=== PATIENT | male | born 1950 | race Caucasian/White ===

== ENCOUNTER → 2016-03-26 | Outpatient (CLI) | payer MEDICARE ==
--- NOTE | 2016-03-26 09:09 | US ---
EXAMINATION TYPE: US duplex aorta DATE OF EXAM: 03/26/2016 8:36 AM COMPARISON: NONE CLINICAL HISTORY: AAA Screening Z13.9. no complaints per patient, screening test EXAM MEASUREMENTS: Abdominal Aorta: Proximal: 1.9 x 2.5 cm Mid: 2.5 x 2.3 cm Distal: 2.8 x 2.4 cm Bifurcation: right 1.6 x 1.9 cm left 1.7 x 1.8 cm TECHNOLOGIST IMPRESSION: exam technically difficult due to body habitus. No AAA identified. Aorta is calcified. IMPRESSION: 1. Fusiform prominence mid to distal abdominal aorta greatest AP diameter is estimated at 2.8 cm.
== END | disposition home or self-care (01) ==
LOC: RADUSWWP 08:11
PROVIDERS: ATTEND Family Medicine
DX: Z13.6 Encounter for screening for cardiovascular disorders (principal)
CPT/HCPCS: 93979

== ENCOUNTER → 2017-04-09 | Outpatient (CLI) | payer MEDICARE ==
--- NOTE | 2017-04-09 10:11 | US ---
EXAMINATION TYPE: US duplex aorta DATE OF EXAM: 04/09/2017 COMPARISON: 03/26/2016 CLINICAL HISTORY: I71.4 Abdominal Aortic Aneurysm w/o rupture. EXAM MEASUREMENTS: Abdominal Aorta: Proximal: 2.2cm Mid: 2.2cm Distal: 3.0cm Bifurcation: Rt. 1.3cm lt 1.5cm Exam somewhat limited by overlying bowel and body habitus. IMPRESSION: Borderline aneurysmal dilatation of distal abdominal aorta.
== END | disposition home or self-care (01) ==
LOC: RADUSWWP 09:35
PROVIDERS: ATTEND Family Medicine
DX: I71.4 Abdominal aortic aneurysm, without rupture (principal)
CPT/HCPCS: 93979

== ENCOUNTER 2019-05-09 09:18 | Emergency (ER) | payer MEDICARE ==
[2019-05-09 09:23] VITALS: TEMP 98.2
--- NOTE | 2019-05-09 10:40 | ED ---
Fall HPI - General Chief Complaint: Fall Stated Complaint: Fall, leg pain Time Seen by Provider: 05/09/19 09:59 Source: patient Mode of arrival: wheelchair - History of Present Illness Initial Comments: Patient is a 68-year-old male presenting to emergency Department with complaints of left leg pain after falling approximately one week ago. Patient states he was carrying a case of Gatorade out to his car when he slipped on some snow and fell forward. Patient states he thinks he had his wallet in his left front pocket which he fell onto. Patient states immediately after the fall he was having no pain and was able to walk and get home on his own. Patient states approximately one to 2 hours later he started feeling soreness into his left leg and knee. Patient does admit to being on xarelto for stroke prevention. He denies hitting his head or LOC. He states he thought his symptoms would get better however they have intensified. Patient is having a hard time felix his left upper leg muscle secondary to pain and bruising. He states he has pain anytime he tries to bend his knee or his left hip. Patient states he is able to walk on his own over the first few steps are sore. He does have previous injury to his left lower leg many years ago. He denies any numbness and tingling into his extremities. He states he does have minor bruising and soreness as long as left chest however that has improved. He has no other complaints from the fall. Upon arrival to the ER, his vital signs are stable. - Related Data Allergies Allergy/AdvReac Type Severity Reaction Status Date / Time No Known Allergies Allergy Verified 05/09/19 09:24 Review of Systems ROS Statement: Those systems with pertinent positive or pertinent negative responses have been documented in the HPI. ROS Other: All systems not noted in ROS Statement are negative. Past Medical History Past Medical History: Coronary Artery Disease (CAD), Chest Pain / Angina, Diabetes Mellitus, Hyperlipidemia, Hypertension, Myocardial Infarction ([place]) History of Any Multi-Drug Resistant Organisms: None Reported Past Surgical History: Appendectomy, Cholecystectomy, Orthopedic Surgery Past Psychological History: No Psychological Hx Reported Smoking Status: Former smoker Past Alcohol Use History: None Reported Past Drug Use History: None Reported General Exam - General Exam Comments Initial Comments: GENERAL: Well-appearing, well-nourished and in no acute distress. HEAD: Atraumatic, normocephalic. EYES: Pupils equal round and reactive to light, extraocular movements intact, sclera anicteric, conjunctiva are normal. ENT: TMs normal, nares patent, oropharynx clear without exudates. Moist mucous membranes. NECK: Normal range of motion, supple without lymphadenopathy or JVD. LUNGS: Breath sounds clear to auscultation bilaterally and equal. No wheezes rales or rhonchi. HEART: Regular rate and rhythm without murmurs, rubs or gallops. Minor bruising along the left anterior chest. No pain with palpation. No pain with deep breathing or coughing. ABDOMEN: Soft, nontender, normoactive bowel sounds. No guarding, no rebound. No masses appreciated. : Deferred EXTREMITIES: No pain with palpation of the left hip or left knee. Significant pain with palpation of the left quadricep muscle. Patient is unable to bend at the left knee or flex at the left hip secondary to tightness of his left carotid. There is significant bruising of the entire left quadricep muscle. Patient is neurovascular intact. Mild swelling to the area as well. No clubbing or cyanosis. NEUROLOGICAL: Cranial nerves II through XII grossly intact. Normal speech, normal gait. PSYCH: Normal mood, normal affect. SKIN: Warm, Dry, normal turgor, no rashes or lesions noted. Limitations: no limitations Course Vital Signs 05/09/19 05/09/19 09:20 10:55 Temperature 98.2 F Pulse Rate 91 96 Respiratory 16 18 Rate Blood Pressure 162/91 140/90 O2 Sat by Pulse 97 99 Oximetry Medical Decision Making - Medical Decision Making Patient is a 68-year-old male presenting with upper left leg pain after falling 1 week ago. There is no LOC, no head injury. Patient is on Xarelto. His only complaint is extensive bruising and mild swelling of the entire left quadriceps muscle. He has increased pain with knee flexion or extension as well as hip flexion. He has tenderness along the lateral aspect of the left quad. X-rays revealed no acute fractures dislocations of the left hip or femur. I discussed with patient this is most likely a leg contusion. I recommended heat to the are a as well as gentle massage. He could also benefit from physical therapy if symptoms do not improve. He is stable for discharge at this time. Patient is agreeable with this plan of care. He will follow up with his PCP. Case discussed with Dr. Crane. Disposition Clinical Impression: Fall, Unspecified injury of left quadriceps muscle, fascia and tendon, initial encounter, Contusion of left leg Disposition: HOME SELF-CARE Condition: Stable Instructions (If sedation given, give patient instructions): Contusion in Adults (ED) Additional Instructions: Please return to the Emergency Department if symptoms worsen or any other concerns. Continue to use heat to the area, gentle stretching, gentle massage, gentle muscle activation. Follow-up with PCP in 1- 2 weeks if symptoms do not improve. Is patient prescribed a controlled substance at d/c from ED?: No Referrals: Vincent Zuñiga MD [Primary Care Provider] - 1-2 days
--- NOTE | 2019-05-09 10:46 | XR ---
EXAMINATION TYPE: XR Hip Complete LT, XR femur LT DATE OF EXAM: 05/09/2019 CLINICAL HISTORY: Fall injury with pain TECHNIQUE: AP and frogleg views of the left femur and hip are obtained. COMPARISON: None. FINDINGS: There is no acute fracture/dislocation evident in the left hip. Atxg-pq-[id number] axial maximus nt space loss and acetabular spurring. The overlying soft tissue appears unremarkable. Images of the left femur show no acute displaced fracture distally. Some popliteal arterial vascular calcification is present. Visualized portion of knee joint shows fairly moderate tricompartment joint space loss. IMPRESSION: There is no acute fracture or dislocation in the left femur or hip.
[2019-05-09 10:57] VITALS: BP 140/90; PULSE 96; RESP 18
== END 2019-05-09 11:29 | disposition home or self-care (01) ==
LOC: EC 09:18
DX: S80.12XA Contusion of left lower leg, initial encounter (principal); S76.012A Strain of muscle, fascia and tendon of left hip, initial encounter; I25.119 Atherosclerotic heart disease of native coronary artery with unspecified angina pectoris; E11.9 Type 2 diabetes mellitus without complications; I10 Essential (primary) hypertension; E78.5 Hyperlipidemia, unspecified; I25.2 Old myocardial infarction; Z87.891 Personal history of nicotine dependence; W00.0XXA Fall on same level due to ice and snow, initial encounter; Y92.009 Unspecified place in unspecified non-institutional (private) residence as the place of occurrence of the external cause
CPT/HCPCS: 73502; 99283

== ENCOUNTER 2020-07-30 18:51 | Emergency (ER) | payer MEDICARE ==
[2020-07-30 19:00] VITALS: BP 175/82; PULSE 78; RESP 20; TEMP 97.8
--- NOTE | 2020-07-30 19:15 | ED ---
Recheck HPI - General Chief Complaint: Recheck/Abnormal Lab/Rx Stated Complaint: Covid test Time Seen by Provider: 07/30/20 19:01 Source: patient, RN notes reviewed Mode of arrival: ambulatory Limitations: no limitations - History of Present Illness Initial Comments: 69-year-old male that presents to emergency department requesting a Covid test back in [place]. He notes that he's received both of his vaccinations. He notes that [place] and is unable to return home without a negative Covid test. She denied any symptoms or complaints of Covid such as shortness of breath cough muscle aches fever diarrhea. He had no other complaints or issues. He was a well-appearing 69-year-old. He denied any chest pain first breath headache nausea vomiting diarrhea constipation fever fatigue chills. - Related Data Allergies Allergy/AdvReac Type Severity Reaction Status Date / Time No Known Allergies Allergy Verified 07/30/20 19:00 Review of Systems ROS Statement: Those systems with pertinent positive or pertinent negative responses have been documented in the HPI. ROS Other: All systems not noted in ROS Statement are negative. Past Medical History Past Medical History: Coronary Artery Disease (CAD), Chest Pain / Angina, Diabetes Mellitus, Hyperlipidemia, Hypertension, Myocardial Infarction ([place]) History of Any Multi-Drug Resistant Organisms: None Reported Past Surgical History: Appendectomy, Cholecystectomy, Orthopedic Surgery Past Psychological History: No Psychological Hx Reported Smoking Status: Never smoker Past Alcohol Use History: None Reported Past Drug Use History: None Reported General Exam Limitations: no limitations General appearance: alert, in no apparent distress Head exam: Present: atraumatic, normocephalic, normal inspection Eye exam: Present: normal appearance, PERRL, EOMI. Absent: scleral icterus, conjunctival injection, periorbital swelling Neck exam: Present: normal inspection Respiratory exam: Present: normal lung sounds bilaterally. Absent: respiratory distress, wheezes, rales, rhonchi, stridor Cardiovascular Exam: Present: regular rate, normal rhythm, normal heart sounds. Absent: systolic murmur, diastolic murmur, rubs, gallop, clicks GI/Abdominal exam: Present: soft, normal bowel sounds. Absent: distended, tenderness, guarding, rebound, rigid Extremities exam: Present: normal inspection, full ROM, normal capillary refill. Absent: tenderness, pedal edema, joint swelling, calf tenderness Neurological exam: Present: alert, oriented X3, CN II-XII intact Psychiatric exam: Present: normal affect, normal mood Skin exam: Present: warm, dry, intact, normal color. Absent: rash Course Vital Signs 07/30/20 18:56 Temperature 97.8 F Pulse Rate 78 Respiratory 20 Rate Blood Pressure 175/82 O2 Sat by Pulse 97 Oximetry Medical Decision Making - Medical Decision Making 69-year-old male requesting Covid test to reenter [place]. Covid test ordered. Covid test negative. Case discussed with Dr. Veloz, patient can discharge home. - Lab Data Lab Results 07/30/20 Range/Units 19:13 Coronavirus (PCR) Not Detected (Not Detectd) Disposition Clinical Impression: Lab test negative for COVID-19 virus Disposition: HOME SELF-CARE Condition: Stable Instructions (If sedation given, give patient instructions): Coronavirus Disease 2019 (COVID-19) Additional Instructions: Please return to the Emergency Department if symptoms worsen or any other concerns. Follow-up with primary care as needed. Is patient prescribed a controlled substance at d/c from ED?: No Referrals: Vincent Zuñiga MD [Primary Care Provider] - 1-2 days Time of Disposition: 19:37
== END 2020-07-30 21:01 | disposition home or self-care (01) ==
LOC: EC 18:51
DX: Z20.822 Contact with and (suspected) exposure to COVID-19 (principal); I25.10 Atherosclerotic heart disease of native coronary artery without angina pectoris; E11.9 Type 2 diabetes mellitus without complications; E78.5 Hyperlipidemia, unspecified; I10 Essential (primary) hypertension; I25.2 Old myocardial infarction
CPT/HCPCS: 87635; 99283

== ENCOUNTER → 2021-08-14 | Outpatient (CLI) | payer MEDICARE ==
--- NOTE | 2021-08-14 16:20 | XR ---
Left leg HISTORY: Chronic osteomyelitis Frontal lateral views the left leg on 4 images, no comparisons There is abnormal cortical thickening involving the mid diaphyseal left tibia and fibula, contour abn ormality consistent with remote history of trauma. No acute fracture or dislocation is evident. Evide nce of prior surgery noted. Atherosclerotic vascular calcifications are present. Osteoarthritic moise e noted within the left knee. IMPRESSION: Correlate for possible osteomyelitis, bone scan or MRI may be of benefit. Osteoarthritis left knee.
== END | disposition home or self-care (01) ==
LOC: RADXRMAIN 14:36
PROVIDERS: ATTEND Nurse Practitioner Family
DX: M17.12 Unilateral primary osteoarthritis, left knee (principal)

== ENCOUNTER → 2021-08-22 | Outpatient (CLI) | payer MEDICARE ==
--- NOTE | 2021-08-22 14:02 | NM ---
EXAMINATION TYPE: NM bone 3 phase DATE OF EXAM: 08/22/2021 COMPARISON: Plain film 08/14/2021 HISTORY: M 86.60 Triple phase bone scintigraphy was performed following the injection of 22.6 mCi Tc 99m MDP. Immedia te images and 5 hours post injection images acquired. Scanning over the legs. FINDINGS: Somewhat decreased uptake in the left leg as compared to the right blood flow and blood poo l images within the soft tissues. Arthropathy noted in the right knee. There is some increased uptake seen in the left leg on blood pool and delayed images, tram track appe arance seen on delayed imaging within the mid diaphyseal left tibia. IMPRESSION: Findings may be indicative of osteomyelitis within the diaphysis of the left tibia.
== END | disposition home or self-care (01) ==
LOC: RADNMMAIN 06:32
PROVIDERS: ATTEND Family Medicine
DX: M12.861 Other specific arthropathies, not elsewhere classified, right knee (principal)
CPT/HCPCS: 78315; A9503

== ENCOUNTER 2021-09-28 21:38 | Emergency (ER) | payer MEDICARE ==
[2021-09-28] MEDS ORDERED: GELATIN SPONGE,ABSORB (SMALL) 1 EACH SPONGE TOPICAL STA (21:55)
[2021-09-28 21:56] VITALS: TEMP 98.8
--- NOTE | 2021-09-28 22:03 | ED ---
General Adult HPI - General Chief complaint: Extremity Injury, Lower Stated complaint: Lt foot wound/bleeding Time Seen by Provider: 09/28/21 21:55 Source: patient, family, RN notes reviewed, old records reviewed Mode of arrival: ambulatory Limitations: no limitations - History of Present Illness Initial comments: 70-year-old male presents with bleeding left leg wound. Patient states he was at wound care clinic today for chronic leg wound and they put medicated pad on wound with dressing. States when he got home it started to bleed again and they could not stop it. Patient denies any pain. He is on xeralto for coronary artery disease. -: hour(s) (4) Location: left, lower extremity Severity scale (1-10): 0 Consistency: intermittent Improves with: other (elevation) Associated Symptoms: denies other symptoms Treatments Prior to Arrival: none - Related Data Allergies Allergy/AdvReac Type Severity Reaction Status Date / Time No Known Allergies Allergy Verified 09/28/21 21:57 Review of Systems ROS Statement: Those systems with pertinent positive or pertinent negative responses have been documented in the HPI. ROS Other: All systems not noted in ROS Statement are negative. Past Medical History Past Medical History: Coronary Artery Disease (CAD), Chest Pain / Angina, Diabetes Mellitus, Hyperlipidemia, Hypertension, Myocardial Infarction ([place]) History of Any Multi-Drug Resistant Organisms: None Reported Past Surgical History: Appendectomy, Cholecystectomy, Orthopedic Surgery Past Psychological History: No Psychological Hx Reported Smoking Status: Never smoker Past Alcohol Use History: None Reported Past Drug Use History: None Reported General Exam Limitations: no limitations General appearance: alert, in no apparent distress Head exam: Present: atraumatic Respiratory exam: Absent: respiratory distress, accessory muscle use Cardiovascular Exam: Present: regular rate Extremities exam: Present: normal capillary refill Left Lower Leg exam: Present: ecchymosis (Multiple scarring and folds from reconstructive surgery; large ulceration posterior calf with active bleeding, no evidence of cellulitis or abscess). Absent: tenderness Foot/Toe exam: Present: normal inspection Neurovascular tendon exam: Present: no vascular compromise, foot drop (chronic). Absent: pulse deficit, abnormal cap refill, extremity cold to touch, pallor Neurological exam: Present: alert, oriented X3 Psychiatric exam: Present: normal affect, normal mood Skin exam: Present: warm, dry. Absent: cyanosis, diaphoretic Course Vital Signs 09/28/21 09/28/21 21:54 23:13 Temperature 98.8 F Pulse Rate 81 80 Respiratory 16 18 Rate Blood Pressure 123/64 122/72 O2 Sat by Pulse 97 98 Oximetry Medical Decision Making - Medical Decision Making Patient presents with a chronic left leg wound. He is been being treated for wound care center for the past 3 weeks. He goes once a week. Today he did bump the leg and had increased bleeding. Wound care did put a pressure dressing on it but when he got home it started to bleed again. Patient denies any other abnormal bleeding. Gelfoam dressing was applied with a pressure dressing and bleeding is controlled. Capillary refill is less than 2 seconds. Pedal pulses are strong. 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 He was instructed to keep the pressure dressing in place until tomorrow morning. Loosen it if the foot becomes cold, pale or painful. If symptoms persist return to the emergency room. I encouraged him to keep the leg elevated and minimize ambulation this evening. Return to the emergency room with pain nor concerning symptoms. Follow-up with wound care. Case discussed with Dr. Hernández. Disposition Clinical Impression: Leg wound, left Disposition: HOME SELF-CARE Condition: Good Instructions (If sedation given, give patient instructions): Chronic Wounds (ED) Additional Instructions: Keep the pressure dressing in place until tomorrow morning. If the foot becomes pale, cold or painful loosen the dressing. If symptoms remain return to the emergency room. If wound starts to rebleed, elevate and hold constant pressure for 20-30 minutes. Follow-up with wound care next week. Is patient prescribed a controlled substance at d/c from ED?: No Referrals: Vincent Zuñiga MD [Primary Care Provider] - 1-2 days Time of Disposition: 22:59
[2021-09-28 23:14] VITALS: BP 122/72; PULSE 80; RESP 18
== END 2021-09-28 23:14 | disposition home or self-care (01) ==
LOC: EC 21:38
DX: S91.302A Unspecified open wound, left foot, initial encounter (principal); I25.10 Atherosclerotic heart disease of native coronary artery without angina pectoris; E11.9 Type 2 diabetes mellitus without complications; E78.5 Hyperlipidemia, unspecified; I10 Essential (primary) hypertension; I21.9 Acute myocardial infarction, unspecified; X58.XXXA Exposure to other specified factors, initial encounter
CPT/HCPCS: 99282

== ENCOUNTER 2021-10-11 10:58 | Day surgery (SDC) | payer MEDICARE ==
[2021-10-09 12:38] VITALS: BMI 33.5
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
[~2021-10-11 10:58] MED LIST: DEXAMETHASONE SOD PHOSPHATE 4 MG/ML 1 ML VIAL IV ONE; LACTATED RINGERS 1,000 ML IV SCH; fentaNYL (PF) 50 MCG/ML 2 ML AMP IV PRN
[2021-10-11 11:52] VITALS: TEMP 98.2
[2021-10-11 12:13] LABS: Glucose,Whole Blood 111 mg/dL (70-110)
[2021-10-11] MEDS ORDERED: ONDANSETRON 4 MG/2 ML VIAL ONE (12:24)
[2021-10-11] MEDS ORDERED: ONDANSETRON 4 MG/2 ML VIAL IVP ONE (12:25)
[2021-10-11] MEDS ORDERED: MIDAZOLAM 2 MG/2 ML VIAL ONE (12:41)
[2021-10-11] MEDS ORDERED: PROPOFOL 10 MG/ML 20 ML VIAL IV ONE (12:41)
[2021-10-11] MEDS ORDERED: fentaNYL (PF) 50 MCG/ML 2 ML AMP ONE (12:41)
[2021-10-11 13:28] VITALS: RESP 16
--- NOTE | 2021-10-11 13:30 | P.OP ---
Date of Procedure: 10/11/21 Preoperative Diagnosis: Ulcer posterior left calf Postoperative Diagnosis: Same Procedure(s) Performed: Surgical debridement ulcer left calf, including its dermis, epidermis, subcutaneous tissue, muscle and tendon Anesthesia: MAC Surgeon: Malik Carroll Estimated Blood Loss (ml): 2 Pathology: none sent Condition: stable Disposition: PACU Indications for Procedure: The patient has an evolving ulcer on the posterior left calf. There is an area of necrosis in the center. Discomfort prevented performing it in Wound Center Operative Findings: Pre-debridement the ulcerative area was about 5 x 4 cm and 0.1 cm in depth following debridement it was 5 x 4 cm and 0.3 cm in depth. We removed fibrinous slough, necrotic tendon and muscle, and subcutaneous tissue. Description of Procedure: With the patient in partial lateral position under benefit of IV sedation we prepped and draped in standard fashion we used a scalpel and first scraped away fibrinous slough and nonviable tissue within surgically excised exposed tendon and necrotic muscle down to into and including bleeding muscle and subcutaneous tissue. Hemostasis was accomplished with direct pressure and was satisfactory. Absorptive silver dressing with Brenton wrap was applied. The patient tolerated the procedure well and was taken recovery area in stable condition.
[2021-10-11 13:50] VITALS: BP 113/66; PULSE 76
== END 2021-10-11 14:00 | disposition home or self-care (01) ==
LOC: OR 10:58
PROVIDERS: ATTEND Thoracic Surgery (Cardiothoracic Vascular Surgery)
DX: L97.225 Non-pressure chronic ulcer of left calf with muscle involvement without evidence of necrosis (principal); I25.10 Atherosclerotic heart disease of native coronary artery without angina pectoris; I10 Essential (primary) hypertension; E11.9 Type 2 diabetes mellitus without complications; E66.01 Morbid (severe) obesity due to excess calories; Z68.33 Body mass index [BMI] 33.0-33.9, adult; I25.2 Old myocardial infarction; Z88.0 Allergy status to penicillin; Z79.899 Other long term (current) drug therapy; Z79.01 Long term (current) use of anticoagulants; Z79.84 Long term (current) use of oral hypoglycemic drugs; Z87.891 Personal history of nicotine dependence; Z80.9 Family history of malignant neoplasm, unspecified
CPT/HCPCS: 11043; J2250; J2405; J3010; J2704